=== PATIENT | female | born 1940 | race Caucasian/White ===

== ENCOUNTER → 2016-06-02 | Outpatient (CLI) | payer MEDICARE, OTHER ==
[~2016-06-02] MED LIST: POTA-243 PO; PROM25SU8 PO; Z.0.NO CURRENT MEDS
[2016-06-02 09:25] LABS: HEMATOCRIT 42.7 % (35.0-46.0); MEAN CELL VOLUME 98.1 FL (80.0-100.0); MEAN CORPUSCULAR HEMOGLOBIN 32.2 PG (27.0-34.0); MEAN CORPUSCULAR HGB CONC 32.8 % (32.0-36.0); PLATELET COUNT 210 TH/MM3 (150-450); RED BLOOD COUNT 4.36 MIL/MM3 (4.00-5.30); RED CELL DISTRIBUTION WIDTH 13.3 % (11.6-17.2); REVIEW FLAG FINAL
[2016-06-02 09:55] LABS: ALKALINE PHOSPHATASE 74 U/L (45-117); ALT (GPT) 22 U/L (10-53); ANION GAP 5 MEQ/L (5-15); AST (GOT) 17 U/L (15-37); BICARBONATE 32.8 MEQ/L (21.0-32.0); BLOOD UREA NITROGEN 17 MG/DL (7-18); CHLORIDE 103 MEQ/L (98-107); GLOMERULAR FILTRATION RATE 60 ML/MIN (>89); GLUCOSE,FASTING 84 MG/DL (74-99); HDL CHOLESTEROL 94.6 MG/DL (40.0-60.0); LDL CHOLESTEROL 130 MG/DL (0-99); POTASSIUM 4.3 MEQ/L (3.5-5.1); SODIUM (NA) 141 MEQ/L (136-145); TOTAL BILIRUBIN ADULT 0.7 MG/DL (0.2-1.0)
== END ==
LOC: PLAB 06:45
PROVIDERS: ATTEND Family Medicine
DX: Z13.6 Encounter for screening for cardiovascular disorders (principal)
CPT/HCPCS: 36415; 80053; 80061; 85027

== ENCOUNTER → 2017-03-01 | Outpatient (CLI) | payer MEDICARE, OTHER ==
[2017-03-01 09:43] LABS: FREE T3 2.71 PG/ML (2.18-3.98)
[2017-03-04 19:54] LABS: PROGESTERONE 0.6 ng/mL
== END ==
LOC: PLAB 06:40
DX: E34.9 Endocrine disorder, unspecified (principal)
CPT/HCPCS: 36415; 82670; 83001; 84144; 84403; 84481

== ENCOUNTER → 2017-05-18 | Outpatient (CLI) | payer MEDICARE, OTHER ==
[2017-05-18 10:40] LABS: FREE T3 3.38 PG/ML (2.18-3.98)
[2017-05-21 15:52] LABS: PROGESTERONE 5.7 ng/mL
== END ==
LOC: PLAB 06:50
DX: E34.9 Endocrine disorder, unspecified (principal)
CPT/HCPCS: 36415; 83001; 84144; 84403; 84481

== ENCOUNTER → 2017-06-01 | Outpatient (CLI) | payer MEDICARE, OTHER ==
[2017-06-01 10:27] LABS: ALBUMIN 3.5 GM/DL (3.4-5.0); ALT (GPT) 36 U/L (10-53); AST (GOT) 25 U/L (15-37); BICARBONATE 29.9 MEQ/L (21.0-32.0); BLOOD UREA NITROGEN 16 MG/DL (7-18); CALCIUM 8.5 MG/DL (8.5-10.1); CHLORIDE 108 MEQ/L (98-107); CHOLESTEROL 200 MG/DL (120-200); CREATININE 0.72 MG/DL (0.50-1.00); GLOMERULAR FILTRATION RATE 79 ML/MIN (>89); GLUCOSE,FASTING 87 MG/DL (74-99); SODIUM (NA) 144 MEQ/L (136-145); TRIGLYCERIDES 37 MG/DL (42-150)
[2017-06-01 10:29] LABS: ALKALINE PHOSPHATASE 83 U/L (45-117); AUTOMATED NEUTROPHIL # 1.7 TH/MM3 (1.8-7.7); BASOPHIL # 0.1 TH/MM3 (0-0.2); BASOPHIL % 2.4 % (0.0-2.0); EOSINOPHIL # 0.2 TH/MM3 (0-0.4); EOSINOPHIL % 5.2 % (0.0-4.0); HDL CHOLESTEROL 79.8 MG/DL (40.0-60.0); HEMATOCRIT 39.7 % (35.0-46.0); HEMOGLOBIN 13.3 GM/DL (11.6-15.3); LDL CHOLESTEROL 113 MG/DL (0-99); LYMPH % 21.7 % (9.0-44.0); LYMPHOCYTE # 0.7 TH/MM3 (1.0-4.8); MEAN CELL VOLUME 98.7 FL (80.0-100.0); MEAN CORPUSCULAR HGB CONC 33.4 % (32.0-36.0); MEAN PLATELET VOLUME 8.4 FL (7.0-11.0); MONO % 14.8 % (0.0-8.0); MONOCYTE # 0.5 TH/MM3 (0-0.9); NEUT % 55.9 % (16.0-70.0); PLATELET COUNT 196 TH/MM3 (150-450); RED BLOOD COUNT 4.02 MIL/MM3 (4.00-5.30); RED CELL DISTRIBUTION WIDTH 12.5 % (11.6-17.2); TOTAL BILIRUBIN ADULT 0.4 MG/DL (0.2-1.0); TOTAL PROTEIN 6.8 GM/DL (6.4-8.2); WHITE BLOOD COUNT 3.1 TH/MM3 (4.0-11.0)
== END ==
LOC: PLAB 07:01
PROVIDERS: ATTEND Family Medicine
DX: Z13.6 Encounter for screening for cardiovascular disorders (principal)
CPT/HCPCS: 36415; 80053; 80061; 85025

== ENCOUNTER → 2017-08-09 | Outpatient (CLI) | payer MEDICARE, OTHER ==
[2017-08-09 11:03] LABS: FREE T3 2.19 PG/ML (2.18-3.98)
[2017-08-11 03:52] LABS: PROGESTERONE 0.7 ng/mL
== END ==
LOC: PLAB 06:42
DX: E34.9 Endocrine disorder, unspecified (principal)
CPT/HCPCS: 36415; 82607; 83001; 84144; 84403; 84481